=== PATIENT | female | born 1940 | race Caucasian/White ===

== ENCOUNTER 2016-11-01 19:27 | Emergency (ER) | payer MEDICARE, OTHER ==
[~2016-11-01] VITALS: Ht 162.6 cm; Wt 65.8 kg
[2016-11-01 19:27] VITALS: BP_SYST 60
[2016-11-01] MEDS ORDERED: MORPHINE 4 MG/ML INJ. SYRINGE IVP ONE (22:00)
[2016-11-01] MEDS ORDERED: MORPHINE 4 MG/ML INJ. SYRINGE ONE (22:02)
[2016-11-01 22:05] VITALS: BP_SYST 62
== END 2016-11-02 01:45 | disposition expired ==
LOC: SED 19:27
DX: Z88.5 Allergy status to narcotic agent (principal); R06.00 Dyspnea, unspecified
CPT/HCPCS: 71010; 87040; 93005; 96374; 99285; J2270